=== PATIENT | female | born 2000 | race Caucasian/White ===

== ENCOUNTER → 2023-08-24 11:11 | Outpatient (CLI) | payer BC, SELFPAY ==
--- NOTE | 2023-08-24 11:16 | DI.NM.S_ITS ---
PROCEDURE: NM BONE SCAN WHOLE BODY RADIOPHARMACEUTICAL: 20.8 mCi Tc-99m MDP IV. INDICATIONS: MORNING STIFFNESS OF JOINTS TECHNIQUE: Delayed whole-body scintigrams were obtained approximately 3-4 hours after intravenous injection of radiotracer. Anterior and posterior views were acquired from vertex to feet. COMPARISON: None. FINDINGS: Increased uptake within the right hand, correlate for injection site. Additional small focal increased uptake within the left elbow. Otherwise, no areas of increased uptake. IMPRESSION: Small focus of increased uptake left elbow uncertain significance. Recommend correlation with symptoms. Large area of increased uptake within the right hand, correlate with injection site. Otherwise, no areas of abnormal tracer uptake. Dictated by: Hasmukh Pratt M.D. on 08/24/2023 at 15:03 Approved by: Hasmukh Pratt M.D. on 08/24/2023 at 15:06
== END ==
LOC: NUCM 11:13
PROVIDERS: Referring Provider Internal Medicine Rheumatology; Visit Provider Internal Medicine Rheumatology
DX: M25.50 Pain in unspecified joint (principal); M25.60 Stiffness of unspecified joint, not elsewhere classified
CPT/HCPCS: 78306; A9503